=== PATIENT | female | born 1935 | race Caucasian/White ===

== ENCOUNTER → 2018-07-23 | Outpatient (CLI) | payer MEDICARE ==
[~2018-07-23] MED LIST: AEC81 PO; CLOP75TA14 PO; METO-408 PO; MIRT45TA79 PO
== END | disposition home or self-care (01) ==
LOC: RAH 10:51
PROVIDERS: ATTEND Family Medicine
DX: G31.9 Degenerative disease of nervous system, unspecified (principal); R40.4 Transient alteration of awareness; I65.23 Occlusion and stenosis of bilateral carotid arteries; Z86.73 Personal history of transient ischemic attack (TIA), and cerebral infarction without residual deficits
CPT/HCPCS: 70450

== ENCOUNTER 2018-11-16 19:32 | Emergency (ER) | payer MEDICARE, OTHER ==
[2018-11-16 20:46] LABS: APPEARANCE,URINE CLOUDY (CLEAR); BILIRUBIN,URINE NEGATIVE (NEGATIVE); COLOR,URINE YELLOW (YELLOW); GLUCOSE, URINE (UA) NEGATIVE (NEGATIVE); KETONES,URINE NEGATIVE (NEGATIVE); LEUKOCYTE ESTERASE ,URINE TRACE (NEGATIVE); NITRATE,URINE NEGATIVE (NEGATIVE); OCCULT BLOOD,URINE NEGATIVE (NEGATIVE); PROTEIN,URINE 30 mg/dL (NEGATIVE); UROBILINOGEN,URINE 0.2 mg/dL (0.2-1.0)
[2018-11-16 21:03] LABS: BACTERIA,URINE Many /HPF (None Seen); MUCUS,URINE Moderate LPF (None Seen)
[2018-11-16] MEDS ORDERED: CEFTRIAXONE SODIUM 1 GM ONE (21:11)
[2018-11-16] MEDS ORDERED: LIDOCAINE HCL-MPF 1% 2ML VIAL ONE (21:11)
== END 2018-11-16 21:51 | disposition home or self-care (01) ==
LOC: EDH 19:32
DX: N30.00 Acute cystitis without hematuria (principal); I10 Essential (primary) hypertension
CPT/HCPCS: 81001; 87077; 87088; 87186; 96372; 99284; J0696; J3490

== ENCOUNTER 2018-12-08 17:06 | Emergency (ER) | payer MEDICARE, OTHER ==
[2018-12-08 18:02] LABS: APPEARANCE,URINE TURBID (CLEAR); BILIRUBIN,URINE SMALL (NEGATIVE); COLOR,URINE YELLOW (YELLOW); GLUCOSE, URINE (UA) NEGATIVE (NEGATIVE); KETONES,URINE NEGATIVE (NEGATIVE); LEUKOCYTE ESTERASE ,URINE NEGATIVE (NEGATIVE); NITRATE,URINE NEGATIVE (NEGATIVE); OCCULT BLOOD,URINE NEGATIVE (NEGATIVE); PH,URINE 5.5 (5.0-8.0); PROTEIN,URINE 30 mg/dL (NEGATIVE); UROBILINOGEN,URINE 0.2 mg/dL (0.2-1.0)
[2018-12-08 18:04] LABS: BACTERIA,URINE Moderate /HPF (None Seen); RBC,URINE 0-1 /HPF (0-1); SQUAMOUS EPITHELIAL CELL,UR Moderate /HPF (0-2)
[2018-12-08 18:05] LABS: AMORPHOUS SEDIMENT,UR Few /LPF (None Seen); OTHER CRYSTALS,URINE SODIUM URATES 1+ /LPF (None Seen)
== END 2018-12-08 18:57 | disposition home or self-care (01) ==
LOC: EDH 17:06
DX: N39.0 Urinary tract infection, site not specified (principal); I10 Essential (primary) hypertension; Z79.899 Other long term (current) drug therapy; Z87.891 Personal history of nicotine dependence
CPT/HCPCS: 81001

== ENCOUNTER 2019-07-17 04:49 | Inpatient (IN) | payer MEDICARE, OTHER ==
[~2019-07-17] VITALS: Ht 160 cm; Wt 55.3 kg
[2019-07-17] MEDS ORDERED: ONDANSETRON HCL 4 MG/2 ML VIAL ONE (05:19)
[2019-07-17] MEDS ORDERED: FENTANYL CITRATE PF 50 MCG/1 ML 2ML VIAL ONE ×2 (05:20→06:40)
[2019-07-17 05:30] LABS: BASOPHILS % (AUTO) 0.3 % (0.0-5.0); EOSINOPHILS % (AUTO) 0.1 % (0.0-8.0); HEMATOCRIT 37.1 % (36-48); LYMPHOCYTES % (AUTO) 13.9 % (21.0-51.0); MEAN CORPUSCULAR HEMOGLOBIN 32.4 pg (27.0-33.0); MEAN CORPUSCULAR HGB CONC 33.2 g/dL (32.0-36.0); MEAN CORPUSCULAR VOLUME 97.6 fL (79-99); NEUTROPHILS % (AUTO) 81.2 % (40.0-77.0); PLATELET COUNT (AUTO) 274 K/uL (130-400); RED CELL DISTRIBUTION WIDTH 12.8 % (11.0-15.5); WHITE BLOOD COUNT (AUTO) 10.8 K/uL (4.8-10.8)
[2019-07-17 05:44] LABS: CREATININE 1.3 mg/dL (0.5-1.5); POTASSIUM 4.3 mmol/L (3.5-5.1)
[2019-07-17 05:47] LABS: INR 0.87 (0.85-1.15); PARTIAL THROMBOPLASTIN TIME 28.8 SEC (26.3-35.5); PROTHROMBIN TIME 9.4 SEC (9.6-11.6)
[2019-07-17 05:51] LABS: ALBUMIN 4.4 g/dL (3.5-5.0); BILIRUBIN,TOTAL 0.7 mg/dL (0.2-1.0); TOTAL PROTEIN, SERUM 7.6 g/dL (6.0-8.3)
[2019-07-17 07:24] LABS: APPEARANCE,URINE Clear (CLEAR); BILIRUBIN,URINE Negative (NEGATIVE); COLOR,URINE Yellow (YELLOW); GLUCOSE, URINE (UA) Negative (NEGATIVE); KETONES,URINE Negative (NEGATIVE); LEUKOCYTE ESTERASE ,URINE Negative (NEGATIVE); NITRATE,URINE Negative (NEGATIVE); OCCULT BLOOD,URINE Negative (NEGATIVE); PH,URINE 7.5 (5.0-8.0); PROTEIN,URINE POS 1+ mg/dL (NEGATIVE); UROBILINOGEN,URINE 0.2 mg/dL (0.2-1.0)
[2019-07-17 07:35] LABS: BACTERIA,URINE Few /HPF (None Seen); RBC,URINE 0-1 /HPF (0-1); WBC,URINE 0-1 /HPF (0-1)
[2019-07-17 07:36] LABS: SQUAMOUS EPITHELIAL CELL,UR 0-2 /HPF (0-2)
[2019-07-17] MEDS ORDERED: HYDROMORPHONE 1 MG/1 ML AMP ONE (08:01)
[2019-07-17] MEDS: SODIUM CHLORIDE 0.9% 1000ML 1,000 ML IV SCH ×2 (08:15→17:29)
[2019-07-17] MEDS ORDERED: POTASSIUM CHLORIDE 10% ELIXIR 20 MEQ/15 ML UDCUP PO PRN (08:30)
[2019-07-17] MEDS: PANTOPRAZOLE 40 MG/VIAL IVP SCH (09:00)
[2019-07-17 12:37] VITALS: BP 165/119
[2019-07-17] MEDS ORDERED: DONE5TAB33 PO (12:54)
[2019-07-17] MEDS ORDERED: METO25 PO (12:54)
[2019-07-17] MEDS ORDERED: FLUT16H NASAL (12:54)
[2019-07-17] MEDS ORDERED: ESOM40CA54 PO (12:54)
[2019-07-17] MEDS ORDERED: DOCU-116 PO (12:54)
[2019-07-17] MEDS ORDERED: GABA-529 PO (12:54)
[2019-07-17] MEDS ORDERED: LEVO5TAB13 PO (12:54)
[2019-07-17] MEDS ORDERED: LEVO50 PO (12:54)
[2019-07-17] MEDS ORDERED: ONDA-104 PO (12:54)
[2019-07-17] MEDS ORDERED: MIRT-72 PO (12:54)
[2019-07-17] MEDS ORDERED: MELA10CA2 PO (12:54)
[2019-07-17] MEDS: HYDROMORPHONE HCL 0.5 MG/0.5 ML ML IVP PRN ×3 (12:59→23:42)
--- NOTE | 2019-07-17 13:03 | NUR ---
DC PLAN VISITED WITH PATIENT. PATIENT ASLEEP. PER INFO FROM NURSE. PATIENT LIVES ALONE. INDEPENDENT ABLE TO PERFORM MOST ADL'S. 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 NO DME AT HOME WAS AMBULATING WITH NO ASSISTANCE. PENDING SURGERY AND PT EVAL FOR BETTER DC PLAN. EITHER HOME OR TO NURSING HOME FACILITY. Addendum: 07/17/19 at 1305 by GURINDER WALTERS RN CM Amended: Links added.
[2019-07-17 13:25] VITALS: BP 152/55
--- NOTE | 2019-07-17 16:11 | NUR ---
QUESTIONS ON SURGERY PT HAS SEVERAL QUESTIONS ABOUT SURGERY TOMORROW. KRISTIN WESTBROOK CALLED DR KAMARA OFFICE TO MAKE AWARE OF PT CONCERNS. PER DR KAMARA- HE WILL SEE AND DISCUSS SURGERY WITH PATIENT TOMORROW MORNING
[2019-07-17 16:34] VITALS: BP 147/69
[2019-07-17 19:36] VITALS: BP 150/83
[2019-07-17] MEDS: DONEPEZIL HCL 5 MG TAB PO SCH (19:59)
[2019-07-17] MEDS: ONDANSETRON HCL 4 MG/2 ML VIAL IVP PRN (19:59)
[2019-07-17 23:02] VITALS: BP 181/78
[2019-07-17] MEDS: HYDRALAZINE HCL 20 MG/ML VIAL IV PRN (23:12)
[2019-07-17 23:53] VITALS: BP 144/56
[2019-07-18] VITALS (19 sets, daily range): BP systolic 114–159; BP diastolic 52–86
[2019-07-18] MEDS: ONDANSETRON HCL 4 MG/2 ML VIAL IVP PRN (04:02)
[2019-07-18 04:03] LABS: BASOPHILS % (AUTO) 0.3 % (0.0-5.0); EOSINOPHILS % (AUTO) 0.1 % (0.0-8.0); HEMATOCRIT 36.4 % (36-48); MEAN CORPUSCULAR HGB CONC 31.9 g/dL (32.0-36.0); MEAN CORPUSCULAR VOLUME 100.6 fL (79-99); MONOCYTES % (AUTO) 5.4 % (3.0-13.0); NEUTROPHILS % (AUTO) 80.9 % (40.0-77.0); PLATELET COUNT (AUTO) 273 K/uL (130-400); RED BLOOD CELL COUNT(AUTO) 3.62 MIL/uL (4.00-5.50); RED CELL DISTRIBUTION WIDTH 13.2 % (11.0-15.5); WHITE BLOOD COUNT (AUTO) 11.5 K/uL (4.8-10.8)
[2019-07-18] MEDS: HYDROMORPHONE HCL 0.5 MG/0.5 ML ML IVP PRN ×3 (04:03→11:23)
[2019-07-18] MEDS: SODIUM CHLORIDE 0.9% 1000ML 1,000 ML IV SCH ×3 (04:03→23:36)
[2019-07-18 04:17] LABS: INR 0.87 (0.85-1.15); PARTIAL THROMBOPLASTIN TIME 30.1 SEC (26.3-35.5); PROTHROMBIN TIME 9.4 SEC (9.6-11.6)
[2019-07-18 04:26] LABS: ALBUMIN 3.8 g/dL (3.5-5.0); BILIRUBIN,TOTAL 0.8 mg/dL (0.2-1.0); CREATININE 1.2 mg/dL (0.5-1.5); MAGNESIUM 1.9 mg/dL (1.80-2.40)
[2019-07-18] MEDS ORDERED: METOPROLOL SUCCINATE 50 MG TAB.SR.24H PO SCH (09:00)
[2019-07-18] MEDS: DOCUSATE SODIUM 100 MG CAP PO SCH (09:00)
[2019-07-18] MEDS ORDERED: METOPROLOL TARTRATE 25 MG TAB PO SCH (09:00)
[2019-07-18] MEDS ORDERED: ASPIRIN 81 MG EC TAB PO SCH (09:00)
--- NOTE | 2019-07-18 09:50 | NUR ---
Per Arun, RN patient is schedule for surgery today.No skilled PT evaluation perform. Addendum: 07/18/19 at 0951 by NUPUR LEUNG PT PT Amended: Links added.
[2019-07-18] MEDS: LEVOTHYROXINE 50 MCG TABLET PO SCH (11:18)
[2019-07-18] MEDS: PANTOPRAZOLE 40 MG/VIAL IVP SCH (11:19)
[2019-07-18] MEDS: METOPROLOL TARTRATE 25 MG TAB PO SCH ×2 (11:19→21:20)
[2019-07-18] MEDS ORDERED: LACTATED RINGERS 1000ML 1,000 ML IV ONE (13:02)
[2019-07-18] MEDS ORDERED: GLYCOPYRROLATE 1 MG/5 ML SYRINGE ONE (13:08)
[2019-07-18] MEDS ORDERED: LIDOCAINE PF 2% 5ML ABBOJECT ONE (13:08)
[2019-07-18] MEDS ORDERED: DEXAMETHASONE SOD PHOSPHATE 10MG/ML 1ML VIAL ONE (13:08)
[2019-07-18] MEDS ORDERED: PROPOFOL 10 MG/ML 20ML VIAL IV ONE (13:09)
[2019-07-18] MEDS ORDERED: FENTANYL CITRATE PF 50 MCG/1 ML 5ML AMP IV ONE (13:09)
[2019-07-18] MEDS ORDERED: ROCURONIUM 10MG/1ML SYR 10 MG/ML ML ONE (13:09)
[2019-07-18] MEDS ORDERED: NEOSTIGMINE 5MG/5ML SYR IV ONE (13:09)
[2019-07-18] MEDS ORDERED: ROPIVACAINE 0.5% 5MG/ML 30ML IJ ONE ×2 (13:11→14:22)
[2019-07-18] MEDS: CEFAZOLIN SODIUM 1 GM VIAL ONE ×2 (14:09→14:30)
[2019-07-18] MEDS ORDERED: EPHEDRINE SULFATE 50 MG/ML AMPULE ONE (14:22)
[2019-07-18] MEDS ORDERED: HETASTARCH IN 0.9 % NACL 500 ML IV ONE (14:35)
[2019-07-18] MEDS ORDERED: ALBUMIN (HUMAN) 25% 100 ML IV ONE (14:36)
[2019-07-18] MEDS ORDERED: SUGAMMADEX SODIUM 200 MG/2 ML VIAL IV ONE (18:21)
[2019-07-18] MEDS ORDERED: APIXABAN 2.5 MG TABLET PO SCH (21:00)
[2019-07-18] MEDS ORDERED: MELATONIN 10 MG PO PRN (21:00)
--- NOTE | 2019-07-18 21:00 | NUR ---
ASSESSMENT ADDENDUM PT AWAKE ,ALERT TO NAME PLACE ,FORGETFUL,EASILY REORIENTATED BACK, DENIES ACUTE DISCOMFORT AT THIS TIME , DRESSING OVER INCISION RIGHT HIP D/I,ABDUCTOR PILLOW IN BETWEEN SERENA DHALIWAL SECURED Addendum: 07/19/19 at 0401 by ALEKS OLSEN RN RN Amended: Links added.
[2019-07-18] MEDS: DONEPEZIL HCL 5 MG TAB PO SCH (21:20)
[2019-07-19 00:16] VITALS: BP 169/69
[2019-07-19] MEDS: HYDRALAZINE HCL 20 MG/ML VIAL IV PRN (00:34)
[2019-07-19] MEDS: HYDROMORPHONE HCL 0.5 MG/0.5 ML ML IVP PRN ×3 (01:10→22:18)
[2019-07-19 04:20] VITALS: BP 145/54
[2019-07-19 05:22] LABS: EOSINOPHILS % (AUTO) 2.4 % (0.0-8.0); HEMATOCRIT 26.1 % (36-48); LYMPHOCYTES % (AUTO) 7.2 % (21.0-51.0); MEAN CORPUSCULAR HEMOGLOBIN 32.9 pg (27.0-33.0); MEAN CORPUSCULAR HGB CONC 32.6 g/dL (32.0-36.0); MEAN CORPUSCULAR VOLUME 101.2 fL (79-99); MONOCYTES % (AUTO) 5.1 % (3.0-13.0); NEUTROPHILS % (AUTO) 84.9 % (40.0-77.0); PLATELET COUNT (AUTO) 171 K/uL (130-400); RED BLOOD CELL COUNT(AUTO) 2.58 MIL/uL (4.00-5.50); RED CELL DISTRIBUTION WIDTH 13.5 % (11.0-15.5); WHITE BLOOD COUNT (AUTO) 8.3 K/uL (4.8-10.8)
[2019-07-19 05:40] LABS: CREATININE 1.1 mg/dL (0.5-1.5)
[2019-07-19] MEDS: LEVOTHYROXINE 50 MCG TABLET PO SCH (06:39)
[2019-07-19 08:00] VITALS: BP 148/55
--- NOTE | 2019-07-19 08:00 | NUR ---
AM SHIFT ASSESSMENT. AWAKE, HOB UP, ASKING FOR HER BKFT. AND ASKING FOR WHOM I GUESS IS ONE OF HER CAREGIVER.
[2019-07-19] MEDS: PANTOPRAZOLE 40 MG/VIAL IVP SCH (08:57)
[2019-07-19] MEDS: DOCUSATE SODIUM 100 MG CAP PO SCH (08:57)
[2019-07-19] MEDS: METOPROLOL TARTRATE 25 MG TAB PO SCH ×2 (08:58→21:49)
--- NOTE | 2019-07-19 10:00 | NUR ---
HER SON CALLED AND CONFIRMED THAT SHE HAS SEVERE DEMENTIA BUT LIVES AT HOME AND HAS CAREGIVERS AROUND THE CLOCK. VERY CONFUSED AND UNABLE TO FOLLOW COMMANDS. THINKS SHE IS HOME AND KEEPS GIVING US LIST OF THINGS SHE WANTS US TO DO OR GET FOR HER.
[2019-07-19 11:46] VITALS: BP 146/63
--- NOTE | 2019-07-19 15:13 | NUR ---
DR. KAMARA IN TO SEE PT. NO NEW ORDERS
[2019-07-19 16:00] VITALS: BP 165/65
--- NOTE | 2019-07-19 16:00 | NUR ---
HAS BEEN AWAKE MOST OF DAY, DRESSING TO RT HIP AREA CLEAN AND DRY, MOVES HER LEGS WELL LYONS REMAINS IN PLACE WITH LIGHT COLORED CORRIE
[2019-07-19 19:49] VITALS: BP 150/53
[2019-07-19] MEDS: SODIUM CHLORIDE 0.9% 1000ML 1,000 ML IV SCH (20:15)
[2019-07-19] MEDS: DONEPEZIL HCL 5 MG TAB PO SCH (21:49)
[2019-07-20] VITALS: BP 113/77
[2019-07-20 05:21] LABS: BASOPHILS % (AUTO) 0.1 % (0.0-5.0); EOSINOPHILS % (AUTO) 0.1 % (0.0-8.0); HEMATOCRIT 25.2 % (36-48); LYMPHOCYTES % (AUTO) 14.8 % (21.0-51.0); MEAN CORPUSCULAR HGB CONC 32.1 g/dL (32.0-36.0); MEAN CORPUSCULAR VOLUME 99.6 fL (79-99); MONOCYTES % (AUTO) 7.6 % (3.0-13.0); NEUTROPHILS % (AUTO) 77.2 % (40.0-77.0); PLATELET COUNT (AUTO) 187 K/uL (130-400); RED BLOOD CELL COUNT(AUTO) 2.53 MIL/uL (4.00-5.50); RED CELL DISTRIBUTION WIDTH 13.9 % (11.0-15.5); WHITE BLOOD COUNT (AUTO) 9.3 K/uL (4.8-10.8)
[2019-07-20 05:35] LABS: CREATININE 1.2 mg/dL (0.5-1.5); POTASSIUM 3.3 mmol/L (3.5-5.1)
[2019-07-20 08:00] VITALS: BP 192/83
--- NOTE | 2019-07-20 08:00 | NUR ---
AM SHIFT ASSESSMENT.
[2019-07-20] MEDS: DOCUSATE SODIUM 100 MG CAP PO SCH (09:56)
[2019-07-20] MEDS: METOPROLOL TARTRATE 25 MG TAB PO SCH ×2 (09:56→20:29)
[2019-07-20] MEDS: APIXABAN 2.5 MG TABLET PO SCH ×2 (09:56→20:29)
[2019-07-20] MEDS: PANTOPRAZOLE SODIUM 40 MG TABLET.DR PO SCH (10:07)
[2019-07-20] MEDS: LEVOTHYROXINE 50 MCG TABLET PO SCH (10:07)
[2019-07-20] MEDS: HYDROMORPHONE HCL 0.5 MG/0.5 ML ML IVP PRN ×2 (10:08→21:26)
--- NOTE | 2019-07-20 10:30 | NUR ---
UP TO CHAIR BY PT.
[2019-07-20 12:00] VITALS: BP 157/73
--- NOTE | 2019-07-20 12:00 | NUR ---
ASST. BACK TO BED ASST. WITH MEAL
[2019-07-20 16:00] VITALS: BP 166/62
[2019-07-20] MEDS: SODIUM CHLORIDE 0.9% 1000ML 1,000 ML IV SCH ×2 (16:15→20:29)
[2019-07-20 19:33] VITALS: BP 154/58
[2019-07-20] MEDS: DONEPEZIL HCL 5 MG TAB PO SCH (20:29)
--- NOTE | 2019-07-20 20:30 | NUR ---
NV STATUS LE'S NEUROVASCULAR STATUS RGHT LE WNL, DIGITS X5 WARM PINK +JOURNEYMAN WELDER,GOOD PEDAL PULSE, SENSATION AND MOTION NOTED Addendum: 07/21/19 at 0414 by ALEKS OLSEN RN RN Amended: Links added.
[2019-07-20 23:42] VITALS: BP 157/61
[2019-07-21] VITALS (8 sets, daily range): BP systolic 136–187; BP diastolic 47–76
[2019-07-21] MEDS: SODIUM CHLORIDE 0.9% 1000ML 1,000 ML IV SCH ×2 (01:44→09:08)
[2019-07-21 05:40] LABS: BASOPHILS % (AUTO) 0.3 % (0.0-5.0); EOSINOPHILS % (AUTO) 0.6 % (0.0-8.0); HEMATOCRIT 24.9 % (36-48); LYMPHOCYTES % (AUTO) 22.1 % (21.0-51.0); MEAN CORPUSCULAR HEMOGLOBIN 33.2 pg (27.0-33.0); MEAN CORPUSCULAR HGB CONC 32.5 g/dL (32.0-36.0); MONOCYTES % (AUTO) 7.8 % (3.0-13.0); NEUTROPHILS % (AUTO) 68.7 % (40.0-77.0); PLATELET COUNT (AUTO) 196 K/uL (130-400); RED BLOOD CELL COUNT(AUTO) 2.44 MIL/uL (4.00-5.50); RED CELL DISTRIBUTION WIDTH 13.7 % (11.0-15.5); WHITE BLOOD COUNT (AUTO) 7.7 K/uL (4.8-10.8)
[2019-07-21 05:54] LABS: CREATININE 1.1 mg/dL (0.5-1.5)
[2019-07-21] MEDS: POTASSIUM CHLORIDE 20MEQ/100ML 100 ML IV PRN ×2 (06:05→08:56)
[2019-07-21] MEDS: LIDOCAINE HCL-MPF 1% 2ML VIAL IJ PRN ×2 (06:05→09:06)
[2019-07-21] MEDS: PANTOPRAZOLE SODIUM 40 MG TABLET.DR PO SCH (06:41)
[2019-07-21] MEDS: LEVOTHYROXINE 50 MCG TABLET PO SCH (06:41)
[2019-07-21] MEDS: DOCUSATE SODIUM 100 MG CAP PO SCH (08:54)
[2019-07-21] MEDS: APIXABAN 2.5 MG TABLET PO SCH ×2 (08:54→21:08)
[2019-07-21] MEDS: HYDROMORPHONE HCL 0.5 MG/0.5 ML ML IVP PRN (08:55)
[2019-07-21] MEDS: METOPROLOL TARTRATE 25 MG TAB PO SCH ×2 (08:56→21:08)
[2019-07-21] MEDS ORDERED: ACETAMINOPHEN 325 MG TAB PO PRN (11:30)
[2019-07-21] MEDS: HYDRALAZINE HCL 20 MG/ML VIAL IV PRN ×2 (12:25→23:58)
[2019-07-21] MEDS: HYDROCODONE/ACETAMINOPHEN 5/325 MG TAB PO PRN ×2 (12:52→19:15)
--- NOTE | 2019-07-21 16:15 | NUR ---
RAGHAVENDRA Note: Noam Bull pending approval CM spoke to pt regarding MD recommendations for short term rehab, pt agreeable, Noam Bull MARILYNN telephone consent obtained. Faxed order, clinicals, PT, PASRR, Covid Assessment to Noam Bull, confirmation received. Spoke to Cira received request. Pt pending approval at this time, aware dcp once approved. EMS arranged and faxed for today, primary nurse to call [facility] once pt ready to DC. Primary nurse aware. CM to cont to follow up.
--- NOTE | 2019-07-21 17:23 | NUR ---
CM Note: Noam Bull approval CM spoke to Cira valadez/Noam Bull. Pt has approval. Per nurse pt pending to have BM. EMS arranged and faxed for today, primary nurse to call [facility] once pt ready to DC. Primary nurse aware. CM to cont to follow up.
[2019-07-21] MEDS: POTASSIUM CHLORIDE 20 MEQ ERTAB PO PRN ×3 (18:04→21:09)
[2019-07-21] MEDS ORDERED: LACTULOSE 20 GM/30 ML UDCUP PO SCH (20:45)
[2019-07-21] MEDS: DONEPEZIL HCL 5 MG TAB PO SCH (21:09)
--- NOTE | 2019-07-21 22:09 | NUR ---
1936: returned call, previous nurse had paged him concerning patient not having good results with the fleets enema administered earlier, doctor made aware. I received orders for lactulose 60 mls now, and soup water enemas x3 every 2 hours. Patient made aware of new orders, verbalized understanding. 2139: Patient continue to complain of pain to rt hip requesting diluadid informed her that the diluadid was causing her constipation. patient still insisted that I call the doctor and also to get her some medication to sleep. paged again, via answering service. 2149: returned call made aware of above, instructed to let patient know that the norco is the pain medication she needs, because Diluadid causing her constipation. I did received orders for Ativan 1 mg po x 1. Patient again made aware of md orders, verbalized understanding, patient very forgetful. 2208: I administered the Ativan 1 mg po for insomnia, explained to patient verbalized understanding, then called a few minutes later to ask for a sleeping pill. Patient reinforced that the medication had already been administered. Patient had a large stool,soft, refused enemas.
[2019-07-21] MEDS ORDERED: LORAZEPAM 1 MG TABLET PO ONE (22:55)
[2019-07-22] MEDS: HYDROCODONE/ACETAMINOPHEN 5/325 MG TAB PO PRN ×3 (00:03→13:18)
[2019-07-22 01:14] VITALS: BP 142/50
[2019-07-22 03:53] VITALS: BP 180/70
[2019-07-22] MEDS: HYDRALAZINE HCL 20 MG/ML VIAL IV PRN (04:24)
[2019-07-22 05:46] VITALS: BP 146/49
--- NOTE | 2019-07-22 05:46 | NUR ---
Patient's b/p has been elevated in the 180's administered Hydralazine 10 mg at 0003, then again at 0424. Both times, b/p went down to 140's. Patient without any c/o dizziness, nausea, nor headache. Last b/p at this time is 146/49, hr 76
[2019-07-22] MEDS: PANTOPRAZOLE SODIUM 40 MG TABLET.DR PO SCH (06:55)
[2019-07-22] MEDS: LEVOTHYROXINE 50 MCG TABLET PO SCH (06:55)
[2019-07-22] MEDS: DOCUSATE SODIUM 100 MG CAP PO SCH (08:22)
[2019-07-22] MEDS: METOPROLOL TARTRATE 25 MG TAB PO SCH (08:23)
[2019-07-22] MEDS: APIXABAN 2.5 MG TABLET PO SCH (08:23)
[2019-07-22 08:24] VITALS: BP 176/65
[2019-07-22] MEDS: POTASSIUM CHLORIDE 20 MEQ ERTAB PO PRN ×2 (08:26→13:18)
--- NOTE | 2019-07-22 10:00 | NUR ---
CM NOTE/EMS/BOWEL MOVEMENT PER REPORT, JAQUELIN COOLSPRING APPROVED. PENDING BOWEL MOVEMENT, PER NURSE, HAD BOWEL MOVEMENT AND NO DISTRESS IN PATIENT. POA MADE AWARE OF DC PLAN TO [facility] VIA EMS TODAY. EMS SET UP FOR NON EMERGENCY TRANSFER. PRIMARY NURSE, TAVO WESTBROOK, MADE AWARE.
[2019-07-22 11:10] VITALS: BP 170/63
--- NOTE | 2019-07-22 12:23 | NUR ---
DR KAMARA OFFICE CALLED DR Phoenix OFFICE REGARDING DISCHARGE AND DRESSING CHANGE INSTRUCTIONS. SPOKE TO CARTER. PENDING CB
--- NOTE | 2019-07-22 15:37 | NUR ---
DR KAMARA GAVE ORDERS TO DC, CHANGE DRESSING PRN AND DAILY (DRY DRESSING), WB LOKESH, F/U [address] KAMARA, USE ABD PILLOW ONLY IN BED
--- NOTE | 2019-07-22 15:51 | NUR ---
REPORT/EMS CALLED REPORT TO TANYA CAT SCAN TECHNOLOGIST AT [facility], CALLED [facility] TO PAVING CONTRACTOR PT
[2019-07-22 16:02] VITALS: BP 116/65
== END 2019-07-22 17:35 | DRG 470 ==
LOC: EDH 04:49 → EDHIP 07:30 → 4CH 12:48 → 4AH 07-18 12:05 → 4CH 07-18 12:07 → 3BH 07-18 21:12
PROVIDERS: ADMIT Internal Medicine; ATTEND Internal Medicine
PROC: 0SRR0J9 Replacement of Right Hip Joint, Femoral Surface with Synthetic Substitute, Cemented, Open Approach (ICD-10-PCS; principal; 2019-07-18 14:44)
DX: S72.001A Fracture of unspecified part of neck of right femur, initial encounter for closed fracture (principal); E87.1 Hypo-osmolality and hyponatremia; M81.0 Age-related osteoporosis without current pathological fracture; I11.9 Hypertensive heart disease without heart failure; M19.90 Unspecified osteoarthritis, unspecified site; E78.5 Hyperlipidemia, unspecified; K21.9 Gastro-esophageal reflux disease without esophagitis; E03.9 Hypothyroidism, unspecified; Z79.02 Long term (current) use of antithrombotics/antiplatelets; Z79.82 Long term (current) use of aspirin; Y93.89 Activity, other specified; Y92.89 Other specified places as the place of occurrence of the external cause; Y99.8 Other external cause status; Z87.891 Personal history of nicotine dependence; Z88.8 Allergy status to other drugs, medicaments and biological substances; Z90.49 Acquired absence of other specified parts of digestive tract; W01.0XXA Fall on same level from slipping, tripping and stumbling without subsequent striking against object, initial encounter; F41.8 Other specified anxiety disorders; I44.0 Atrioventricular block, first degree
CPT/HCPCS: 36415; 71045; 72192; 74176; 80048; 80053; 80061; 81001; 82550; 83735; 84132; 84484; 85025; 85610; 85730; 88307; 88311; 93005; 97039; C1776; C9113; G0378; J0360; J0690; J1100; J1170; J2001; J2405; J2704; J2710; J2795; J3010; J3480; J3490; J7030; J7120; P9047

== ENCOUNTER 2023-04-05 12:35 | Emergency (ER) | payer MEDICARE, OTHER ==
[~2023-04-05] VITALS: Ht 162.6 cm; Wt 38.7 kg
[~2023-04-05 12:35] MED LIST changes: -CLOP75TA14 PO; +DOCU-116 PO; +DONE5TAB33 PO; +ESOM40CA54 PO; +FLUT16H NASAL; +GABA-529 PO; +LEVO50 PO; +LEVO5TAB13 PO; +MELA10CA2 PO; -METO-408 PO; +METO25 PO; +MIRT-72 PO; -MIRT45TA79 PO; +ONDA-104 PO
[2023-04-05 13:23] LABS: BASOPHILS # (AUTO) 0.03 K/uL (0.00-0.20); BASOPHILS % (AUTO) 0.2 % (0.0-5.0); EOSINOPHILS # (AUTO) 0.01 K/uL (0.00-0.70); EOSINOPHILS % (AUTO) 0.1 % (0.0-8.0); HEMATOCRIT 38.4 % (36-48); IMMATURE GRANULOCYTE ABSOLUTE 0.08 K/uL (0-1); LYMPHOCYTES # (AUTO) 3.5 K/uL (1.0-4.8); LYMPHOCYTES % (AUTO) 26.6 % (21.0-51.0); MEAN CORPUSCULAR HEMOGLOBIN 32.5 pg (27.0-33.0); MEAN CORPUSCULAR HGB CONC 32.6 g/dL (32.0-36.0); MEAN CORPUSCULAR VOLUME 99.7 fL (79-99); MONOCYTES # (AUTO) 0.6 K/uL (0.1-1.0); MONOCYTES % (AUTO) 4.8 % (3.0-13.0); NEUTROPHILS # (AUTO) 8.8 K/uL (1.8-7.7); NEUTROPHILS % (AUTO) 67.7 % (40.0-77.0); PLATELET COUNT (AUTO) 336 K/uL (130-400); RED BLOOD CELL COUNT(AUTO) 3.85 MIL/uL (4.00-5.50); RED CELL DISTRIBUTION WIDTH 14.2 % (11.0-15.5)
[2023-04-05 13:37] LABS: INR <= 0.93 (0.85-1.15); PROTHROMBIN TIME 9.8 SEC (9.6-11.6)
[2023-04-05 13:39] LABS: CREATININE 1.7 mg/dL (0.5-1.5); PARTIAL THROMBOPLASTIN TIME 30.4 SEC (26.3-35.5); POTASSIUM 4.5 mmol/L (3.5-5.1)
[2023-04-05 13:49] LABS: ALBUMIN 3.7 g/dL (3.5-5.0); BILIRUBIN,TOTAL 0.4 mg/dL (0.2-1.0); TOTAL PROTEIN, SERUM 7.8 g/dL (6.0-8.3)
[2023-04-05 13:55] LABS: B-TYPE NATRIURETIC PEPTIDE 391 pg/mL (0-100)
[2023-04-05 14:32] VITALS: BP 120/36; PULSE 89; RESP 16; O2SAT 98
== END 2023-04-05 15:46 | disposition left against medical advice (07) ==
LOC: EDH 12:35
DX: R06.02 Shortness of breath (principal); I47.10 Supraventricular tachycardia, unspecified; I48.92 Unspecified atrial flutter; K02.9 Dental caries, unspecified; Z79.82 Long term (current) use of aspirin; Z79.899 Other long term (current) drug therapy
CPT/HCPCS: 36415; 71045; 80053; 82550; 83880; 84484; 85025; 85610; 85730; 93005